=== PATIENT | male | born 1990 | race Asian ===

== ENCOUNTER 2021-04-06 12:38 | Emergency (ER) | payer BC, OTHER ==
[2021-04-06 13:20] VITALS: BP 160/91; PULSE 70; TEMP 97.8; BMI 23.5
[2021-04-06] MEDS ORDERED: SILVER SULFADIAZINE 1% TOP CREAM 50 GM JAR TP ONE ×2 (13:58→14:04)
== END 2021-04-06 19:24 | disposition home or self-care (01) ==
LOC: JER 12:38
DX: S93.401A Sprain of unspecified ligament of right ankle, initial encounter (principal); T25.011A Burn of unspecified degree of right ankle, initial encounter; X50.0XXA Overexertion from strenuous movement or load, initial encounter; W93.8XXA Exposure to other excessive cold of man-made origin, initial encounter; Y93.67 Activity, basketball
CPT/HCPCS: 73610-TC-RT-FY; 73630-TC-RT-FY; 99283-25